=== PATIENT | female | born 1965 | race Caucasian/White ===

== ENCOUNTER 2021-09-08 09:27 | Emergency (ER) | payer BC ==
--- OUTSIDE RECORDS SUMMARY | 2021-09-08 09:30 | XMS REPORT | Continuity of Care Document ---
:1965 Author Organization [facility] t Address [address] [place] [address] Care Team Providers Name Role Phone Asar_F_WAGDNU Attending Clinician Unavailable Hart_R Attending Clinician Unavailable Asar_F_WAGDNU Admitting Clinician Unavailable Hart_R Admitting Clinician Unavailable Payers Payer Name Policy Type Policy Number Effective Date Expiration Date S wolf[place] [id number] 2020 00:00:00 Problems Condition Condition Condition Status Onset Resolution Last Treating Co mments Source Name Details Category Date Date Treatment Clinician Date Menopause Menopause Problem Active 2020-03 Galdino senia 1-08 Family 00:00: Practic 00 e Hypothyroi Hypothyroi Problem Active V illage dism dism 8-08 Family 00:00: Practic 00 e Allergies, Adverse Reactions, Alerts Allergy Allergy Status Severity Reaction(s) Onset Inactive Treating Comm ents Source Name Type Date Date Clinician Keflex Allergy Active Moderate Hives [facility] Practic e e Social History Smoking Status Start Date Stop Date Source Never Smoker [facility] Medications Ordered Filled Start Stop Current Ordering Indication Dosage Frequency Signature Comments Components Source Medication Medication Date Date Medication? Clinician (SIG) Name Name COMPOUNDED COMPOUNDED No COMPOUNDED [facility] MEDICATION MEDICATION MEDICATION Family Biest Biest Biest Practic (80/20)/ (80/20)/ (80/20)/ e Test 2.5/2 Test 2.5/2 Test 2.5/2 mg/ml HRT mg/ml HRT mg/ml HRT cream 0.5 cream 0.5 cream 0.5 ml ml ml topically topically topically to forearms to forearms to or inner or inner forearms thighs bid thighs bid or inner thighs bid COMPOUNDED COMPOUNDED No COMPOUNDED [facility] MEDICATION MEDICATION MEDICATION Family Biest Biest Biest Practic (80/20)/ (80/20)/ (80/20)/ e Test 2.5/2 Test 2.5/2 Test 2.5/2 mg/ml HRT mg/ml HRT mg/ml HRT cream 0.5 cream 0.5 cream 0.5 ml ml ml topically topically topically to forearms to forearms to or inner or inner forearms thighs bid thighs bid or inner thighs bid COMPOUNDED COMPOUNDED No COMPOUNDED [facility] MEDICATION MEDICATION MEDICATION Family Biest Biest Biest Practic (80/20)/ (80/20)/ (80/20)/ e Test 2.5/2 Test 2.5/2 Test 2.5/2 mg/ml HRT mg/ml HRT mg/ml HRT cream 0.5 cream 0.5 cream 0.5 ml ml ml topically topically topically to forearms to forearms to or inner or inner forearms thighs bid thighs bid or inner thighs bid escitalopra escitalopra No 1 Q1D escitalopr [facility] m 10 mg m 10 mg am 10 mg Famil y tablet Take tablet Take tablet Practic 1 tablet 1 tablet Take 1 e every day every day tablet by oral by oral every day route for route for by oral 30 days. 30 days. route for 30 days. gabapentin gabapentin gabapentin [facility] 100 mg 100 mg 100 mg [facility] capsule capsule capsule Practi c e hydrochloro hydrochloro hydrochlor [facility] thiazide 25 thiazide 25 othiazide Family mg tablet mg tablet 25 mg Prac tic Take 1 Take 1 tablet e tablet tablet Take 1 every day every day tablet by oral by oral every day route as route as by oral needed for needed for route as 90 days. 90 days. needed for 90 days. levothyroxi levothyroxi levothyrox [facility] 50 mcg ne 50 mcg ine 50 mcg Family tablet Take tablet Take tablet Practic 1 tablet 1 tablet Take 1 e every day every day tablet by oral by oral every day route. route. by oral route. naltrexone naltrexone No 1 Q1D naltrexone [facility] 50 mg 50 mg 50 mg Family tablet Take tablet Take tablet Practic 1 tablet 1 tablet Take 1 e every day every day tablet by oral by oral every day route for route for by oral 30 days. 30 days. route for 30 days. progesteron progesteron No progestero [facility] micronized micronized micronized Practic 200 mg 200 mg 200 mg e capsule capsule capsule Take 1 Take 1 Take 1 capsule capsule capsule every day every day every day by oral by oral by oral route at route at route at bedtime for bedtime for bedtime 90 days. 90 days. for 90 days. valacyclovi valacyclovi jeet [facility] r 500 mg r 500 mg ir 500 mg Fa susy tablet Take tablet Take tablet Practic 1 tablet 1 tablet Take 1 e every day every day tablet by oral by oral every day route for route for by oral 90 days. 90 days. route for 90 days. Vital Signs Vital Name Observation Time Observation Value Comments Source BP Diastolic 2021-01-25 00:00:00 76 mm[Hg] [facility] Height 2021-01-25 00:00:00 65 [in_i] [facility] BMI (Body Mass 2021-01-25 00:00:00 28.5 kg/m2 [facility] Family Index) Practice BP Systolic 2021-01-25 00:00:00 121 mm[Hg] [facility] Body Weight 2021-01-25 00:00:00 171.2 [lb_av] [facility] BP Diastolic 2020-12-08 00:00:00 90 mm[Hg] [facility] Height 2020-12-08 00:00:00 65 [in_i] [facility] BMI (Body Mass 2020-12-08 00:00:00 29.1 kg/m2 [facility] Family Index) Practice BP Systolic 2020-12-08 00:00:00 138 mm[Hg] [facility] Body Weight 2020-12-08 00:00:00 174.8 [lb_av] [facility] BP Diastolic 2020-10-21 00:00:00 71 mm[Hg] [facility] Height 2020-10-21 00:00:00 65 [in_i] [facility] BMI (Body Mass 2020-10-21 00:00:00 29.5 kg/m2 [facility] Family Index) Practice BP Systolic 2020-10-21 00:00:00 112 mm[Hg] [facility] Body Weight 2020-10-21 00:00:00 177 [lb_av] [facility] Procedures Procedure Date / Time Performed Performing Clinician Sourc e Foot Surgery 2009-03-20 00:00:00 [facility] Famil y [facility] Plan of Care Planned Activity Planned Date Details Comments Source Diagnostic Test 2021-01-25 estradiol, serum [facility] Pending 00:00:00 [code = estradiol, Practice serum] Diagnostic Test 2021-01-25 FSH [facility] James mcelroy Pending 00:00:00 (follicle-stimulat Practice ing hormone), serum [code = FSH (follicle-stimulat ing hormone), serum] Diagnostic Test 2021-01-25 testosterone, [facility] letty Pending 00:00:00 total, serum [code Practice = testosterone, total, serum] Diagnostic Test 2021-01-25 [facility]:00 plasma [code = Practice TSH, serum or plasma] Diagnostic Test 2021-01-25 T3, free, serum or [facility] Pending 00:00:00 plasma [code = T3, Practice free, serum or plasma] Diagnostic Test 2021-01-25 T4, total, serum [facility] Pending 00:00:00 [code = T4, total, Practice serum] Encounters Start End Encounter Admission Attending Care Care Encounter Source Date/Time Date/Time Type Type Clinicians Facility Department ID 2021-02-03 2021-02-03 Outpatient Asar_F_WAGD VFP VFP [id number] [facility] 09:17:00 09:17:00 NU [id number] Family Practic e 2021-01-25 2021-01-25 Outpatient Hart_R VFP VFP [id number] [facility] 12:17:00 12:17:00 [id number] Family Practic e 2021-01-25 2021-01-25 Makayla H [facility] [place] - [id number] [facility] 00:00:00 00:00:00 MD Remigio: [facility] [address] [facility] [address], League _ERNESTINA_[place], [place] kacie Morrison [phone] , Ph. 2020-12-17 2020-12-17 Outpatient Hart_R VFP VFP [id number] [facility] 12:22:00 12:22:00 [id number] Family Practic e 2020-12-17 2020-12-17 Outpatient Asar_F_WAG VFP VFP [id number] [facility] 12:22:00 12:22:00 [id number] Family Practic e 2020-12-17 2020-12-17 Outpatient Hart_R VFP VFP [id number] [facility] 12:22:00 12:22:00 [id number] Family Practic e 2020-12-14 2020-12-14 Outpatient Hart_R VFP VFP [id number] [facility] 01:30:00 01:30:00 [id number] Family Practic e 2020-12-08 2020-12-08 Outpatient Asar_F_WAG VFP VFP [id number] [facility] 05:54:00 05:54:00 [id number] Family Practic e 2020-12-08 2020-12-08 Outpatient Hart_R VFP VFP [id number] [facility] 05:54:00 05:54:00 [id number] Family Practic e 2020-12-08 2020-12-08 Makayla H [facility] [place] - [id number] [facility] 00:00:00 00:00:00 MD Remigio: [facility] ly [address] [place] [address] 3, [place] [phone] , Ph. 2020-10-28 2020-10-28 Outpatient Hart_R VFP VFP [id number] [facility] 11:29:00 11:29:00 [id number] Family Practic e 2020-10-28 2020-10-28 Outpatient Hart_R VFP VFP [id number] [facility] 11:25:00 11:25:00 [id number] Family Practic e 2020-10-24 2020-10-24 Outpatient Hart_R VFP VFP [id number] [facility] 09:37:00 09:37:00 [id number] Family Practic e 2020-10-24 2020-10-24 Outpatient Hart_R VFP VFP [id number] [facility] 09:37:00 09:37:00 [id number] Family Practic e 2020 2020 Outpatient Hart_R VFP VFP [id number] [facility] 11:45:00 11:45:00 [id number] Family Practic e 2020-10-21 2020-10-21 Outpatient Hart_R VFP VFP [id number] [facility] 05:23:00 05:23:00 [id number] Family Practic e 2020-10-21 2020-10-21 Makayla H [facility] [place] - [id number] [facility] 00:00:00 00:00:00 MD Remigio: [facility] [address] [facility] [address], [place] [facility] [place] [phone] , Ph. 2020-10-18 2020-10-18 Outpatient Hart_R VFP VFP [id number] [facility] 03:32:00 03:32:00 [id number] Family Practic e 2020-09-15 2020-09-15 Outpatient Asar_F_WAG VFP VFP [id number] [facility] 11:20:00 11:20:00 [id number] Family Practic e Results This patient has no known results.
[2021-09-08 10:07] LABS: Absolute Lymphocytes (CBC) 3.6 K/uL (0.7-4.9); Hematocrit 34.9 % (36.0-45.0); Lymphocytes % 38.1 % (15.3-44.8); MPV 7.4 fL (7.6-11.3); RBC Red Blood Cell Count 3.86 M/uL (3.86-4.86)
[2021-09-08 10:26] LABS: Potassium 3.5 mmol/L (3.5-5.1); Troponin High Sensitivity 4.4 pg/mL (<58.9)
[2021-09-08] MEDS ORDERED: ONDANSETRON 4 MG/2 ML VIAL ONE (10:38)
--- NOTE | 2021-09-08 10:57 | RAD REPORT ---
EXAM DESCRIPTION: CT - Angio Aorta For Dissection - 09/08/2021 10:42 am CLINICAL HISTORY: . Chest and abd pain aortic aneurysm COMPARISON: None TECHNIQUE: Computed tomography angiography of the chest, abdomen pelvis were obtained. 100 cc Isovue 370 was administered intravenously. Coronal and sagittal reconstruction were performed. MIP 3D reconstruction was performed All CT scans are performed using dose optimization technique as appropriate and may include automated exposure control or mA/KV adjustment according to patient size. FINDINGS: An aortic dissection is not seen. AP diameter ascending thoracic aorta 4 centimeters. The abdominal aorta is normal caliber. Iliac mario charlotte are normal. The celiac, SMA and KATYA are patent . A lung consolidation is not present. A pericardial effusion is not seen. A pleural effusion is not no chely. 5 centimeter lesion left lobe of the liver. Spleen, pancreas,adrenals and kidneys demonstrate no significant abnormality. There no evidence diverticulitis. Normal appendix IMPRESSION: Negative for an aortic dissection. Ascending aorta AP diameter 4 centimeters 5 centimeter lesion left lobe of the liver is nonspecific. It is recommended that patient have a live r ultrasound for further evaluation
[2021-09-08 10:59] LABS: Urine Blood 1+ (Negative); Urine Glucose Negative (Negative); Urine Protein Negative (Negative)
--- NOTE | 2021-09-08 11:43 | EDPHYS ---
Physician Documentation [facility] Name: Dyana Tanner Age: 55 yrs Sex: Female : 1965 Arrival Date: 09/08/2021 Time: 09:29 Bed 2 Private MD: ED Physician Chas Leiva HPI: 09/08 10:03 This 55 yrs old Female presents to ER via Ambulatory with complaints of Numbness Of rn Hand, Arm Pain. 10:03 The patient or guardian reports pain, tingling. The complaints affect the left hand rn diffusely, right hand diffusely. Context: The problem was sustained at an unknown location. Onset: The symptoms/episode began/occurred 2 month(s) ago. Modifying factors: The symptoms are alleviated by nothing, the symptoms are aggravated by nothing. Severity of symptoms: At their worst the symptoms were mild, in the emergency department the symptoms are unchanged. The patient has experienced similar episodes in the past. The patient has not recently seen a physician. Pt reports "months" of bilateral hand pain and tingling. Works a lot with hands. Yesterday felt nausea and threw up once, attributed it to acid reflux and "spitup". Denies chest pain or abd pain. No diarrhea. No fever. Reports also myalgias of back and arms. Hx of aortic aneurysm, tracked for about 7 years, told surgery not indicated. Went to [facility] urgent care, told couldn't be seen there due to hx of aortic aneurysm.. Historical: - Allergies: 09:35 Keflex; ss - PMHx: 09:35 "used to be diabetic"; aortic aneurysm; ss - PSHx: 09:35 foot; finger; ss - Immunization history:: Adult Immunizations up to date. - Social history:: Smoking status: Patient denies any tobacco usage or history of. Patient uses street drugs, marijuana. - Family history:: not pertinent. - Hospitalizations: : No recent hospitalization is reported. ROS: 10:03 Constitutional: Negative for fever, chills, and weight loss, Eyes: Negative for injury, rn pain, redness, and discharge, ENT: Negative for injury, pain, and discharge, Neck: Negative for injury, pain, and swelling, Cardiovascular: Negative for chest pain, palpitations, and edema, Respiratory: Negative for shortness of breath, cough, wheezing, and pleuritic chest pain, Abdomen/GI: Negative for abdominal pain, nausea, vomiting, diarrhea, and constipation, Back: Negative for injury and pain, MS/Extremity: Negative for injury and deformity, Skin: Negative for injury, rash, and discoloration, Neuro: Negative for headache, weakness, and seizure. Exam: 10:03 Constitutional: This is a well developed, well nourished patient who is awake, alert, rn and in no acute distress. Ambulatory to room without difficulty or assistance. Head/Face: Normocephalic, atraumatic. Eyes: Periorbital areas with no swelling, redness, or edema. Neck: Trachea midline, no thyromegaly or masses palpated, and no cervical lymphadenopathy. Supple, full range of motion without nuchal rigidity, or vertebral point tenderness. No Meningismus. Cardiovascular: Regular rate and rhythm. No pulse deficits. Respiratory: No increased work of breathing, no retractions or nasal flaring. Abdomen/GI: Soft, non-tender Skin: Warm, dry MS/ Extremity: Pulses equal, no cyanosis. Neurovascular intact. Full, normal range of motion. Equal circumference. Neuro: Awake and alert, GCS 15, oriented to person, place, time, and situation. Cranial nerves II-XII grossly intact. Motor strength 5/5 in all extremities. Sensory grossly intact. Cerebellar exam normal. Normal gait. Vital Signs: 09:33 BP 126 / 84; Pulse 67; Resp 17; Temp 98.4(TE); Pulse Ox 100% on R/A; Weight 80.74 kg; ss Height 5 ft. 7 in. (170.18 cm); Pain 4/10; 11:00 BP 97 / 59; Pulse 50; Resp 14; Pulse Ox 95% on R/A; vg1 12:13 BP 94 / 57; Pulse 50; Resp 16; Pulse Ox 95% on R/A; vg1 09:33 Body Mass Index 27.88 (80.74 kg, 170.18 cm) ss MDM: 09:31 Patient medically screened. rn 11:41 Differential diagnosis: neuropathy, carpal tunnel, radiculopathy. Data reviewed: vital rn signs, nurses notes, lab test result(s), EKG, radiologic studies, CT scan, and as a result, I will discharge patient. Counseling: I had a detailed discussion with the patient and/or guardian regarding: the historical points, exam findings, and any diagnostic results supporting the discharge/admit diagnosis, lab results, radiology results, the need for outpatient follow up, to return to the emergency department if symptoms worsen or persist or if there are any questions or concerns that arise at home. Special discussion: I discussed with the patient/guardian in detail that at this point there is no indication for admission to the hospital. It is understood, however, that if the symptoms persist or worsen the patient needs to return immediately for re-evaluation. 09/08 09:51 Order name: CBC with Diff; Complete Time: 10:32 rn 09/08 09:51 Order name: Basic Metabolic Panel; Complete Time: 10:32 rn 09/08 09:51 Order name: SARS-COV-2 RT PCR (Document "Date of Onset" if Symptomatic); Complete Time: rn 11:41 09/08 09:51 Order name: Flu; Complete Time: 11:41 rn 09/08 09:51 Order name: Troponin High Sensitivity; Complete Time: 10:32 rn 09/08 10:59 Order name: Urine Dipstick-Ancillary; Complete Time: 11:06 EDMS 09/08 09:51 Order name: IV Start; Complete Time: 10:15 rn 09/08 09:51 Order name: Urine Dipstick-Ancillary (obtain specimen); Complete Time: 11:12 rn 09/08 09:51 Order name: EKG; Complete Time: 09:52 rn 09/08 09:51 Order name: EKG - Nurse/Tech; Complete Time: 10:14 rn 09/08 09:54 Order name: CT Aorta for Dissection; Complete Time: 11:06 rn 09/08 09:54 Order name: Cardiac monitoring; Complete Time: 10:14 rn 09/08 09:54 Order name: O2 Sat Monitoring; Complete Time: 10:14 rn Administered Medications: 10:35 Drug: Zofran (Ondansetron) 4 mg Route: IVP; Site: right forearm; vg1 12:13 Follow up: Response: No adverse reaction; Marked relief of symptoms vg1 Disposition Summary: 09/08/21 11:42 Discharge Ordered Location: Home rn Problem: an ongoing problem rn Symptoms: have improved rn Condition: Stable rn Diagnosis - Paresthesia of skin rn - Polyneuropathy, unspecified rn Followup: rn - With: Private Physician - When: As needed - Reason: Recheck today's complaints, Re-evaluation by your physician Discharge Instructions: - Discharge Summary Sheet rn - Paresthesia rn - Peripheral Neuropathy rn Forms: - Medication Reconciliation Form rn - Thank You Letter rn - Antibiotic learning and development manager - Prescription Opioid Use rn - Work release form vg1 Signatures: Dispatcher [employer] Santa Tolbert RN RN Chas Cooper MD MD rn Smirch, Shelby, RN RN ss Garcia, Victoria, RN RN vg1
--- NOTE | 2021-09-08 11:43 | ER ---
Nurse's Notes [facility] Name: Dyana Tanner Age: 55 yrs Sex: Female : 1965 Arrival Date: 09/08/2021 Time: 09:29 Bed 2 Private MD: Diagnosis: Paresthesia of skin;Polyneuropathy, unspecified Presentation: 09/08 09:33 Chief complaint: Patient states: Intermittent pain and numbness to bilateral fingers ss that began months ago. PT reports that this morning her L arm started hurting she had some episodes of nausea. HX of aortic aneurysm that she has not been following up with as she should. Coronavirus screen: Client denies travel out of the [place] in the last 14 days. Ebola Screen: Patient denies exposure to infectious person. Patient denies travel to an Ebola-affected area in the 21 days before illness onset. Initial Sepsis Screen: Does the patient meet any 2 criteria? No. Patient's initial sepsis screen is negative. Does the patient have a suspected source of infection? No. Patient's initial sepsis screen is negative. Risk Assessment: Do you want to hurt yourself or someone else? Patient reports no desire to harm self or others. Onset of symptoms is unknown. 09:33 Method Of Arrival: Ambulatory ss 09:33 Acuity: CHEPE 3 ss Historical: - Allergies: 09:35 Keflex; ss - PMHx: 09:35 "used to be diabetic"; aortic aneurysm; ss - PSHx: 09:35 foot; finger; ss - Immunization history:: Adult Immunizations up to date. - Social history:: Smoking status: Patient denies any tobacco usage or history of. Patient uses street drugs, marijuana. - Family history:: not pertinent. - Hospitalizations: : No recent hospitalization is reported. Screenin:35 Abuse screen: Denies threats or abuse. Nutritional screening: No deficits noted. vg1 Tuberculosis screening: No symptoms or risk factors identified. Fall Risk No fall in past 12 months (0 pts). No secondary diagnosis (0 pts). IV access (20 points). Ambulatory Aid- None/Bed Rest/Nurse Assist (0 pts). Gait- Normal/Bed Rest/Wheelchair (0 pts) Mental Status- Oriented to own ability (0 pts). Total Greer Fall Scale indicates No Risk (0-24 pts). Assessment: 09:35 General: Appears in no apparent distress. uncomfortable, Behavior is calm, cooperative. vg1 Pain: Complains of pain in left arm Pain currently is 5 out of 10 on a pain scale. Pain began 1 day ago. Neuro: Level of Consciousness is awake, alert, obeys commands, Oriented to person, place, time, situation, Training Manager are equal bilaterally Moves all extremities. Gait is steady, Speech is normal, Facial symmetry appears normal. Cardiovascular: Denies chest pain, shortness of breath, Patient's skin is warm and dry. Respiratory: Airway is patent Respiratory effort is even, unlabored. GI: Reports nausea. : No signs and/or symptoms were reported regarding the genitourinary system. EENT: No signs and/or symptoms were reported regarding the EENT system. Derm: Skin is intact, is healthy with good turgor. Musculoskeletal: Circulation, motion, and sensation intact. 11:13 Reassessment: Patient appears in no apparent distress at this time. No changes from vg1 previously documented assessment. Patient and/or family updated on plan of care and expected duration. Pain level reassessed. Patient is alert, oriented x 3, equal unlabored respirations, skin warm/dry/pink. 12:12 Reassessment: Patient appears in no apparent distress at this time. No changes from vg1 previously documented assessment. Patient and/or family updated on plan of care and expected duration. Pain level reassessed. Patient is alert, oriented x 3, equal unlabored respirations, skin warm/dry/pink. Vital Signs: 09:33 BP 126 / 84; Pulse 67; Resp 17; Temp 98.4(TE); Pulse Ox 100% on R/A; Weight 80.74 kg; Height 5 ft. 7 in. (170.18 cm); Pain 4/10; 11:00 BP 97 / 59; Pulse 50; Resp 14; Pulse Ox 95% on R/A; vg1 12:13 BP 94 / 57; Pulse 50; Resp 16; Pulse Ox 95% on R/A; vg1 09:33 Body Mass Index 27.88 (80.74 kg, 170.18 cm) ED Course: 09:29 Patient arrived in ED. mr 09:31 Chas Leiva MD is Attending Physician. rn 09:35 Triage completed. ss 09:35 Arm band placed on right wrist. ss 09:35 Patient has correct armband on for positive identification. Placed in gown. Bed in low vg1 position. Call light in reach. Side rails up X 1. 09:36 Leticia Hodgson, RN is Primary Nurse. vg1 09:50 Initial lab(s) drawn, by me, sent to lab. Inserted saline lock: 20 gauge in left vg1 forearm, using aseptic technique. Blood collected. 09:55 COVID swab sent to lab. Flu and/or RSV swab sent to lab. vg1 10:[address] via stretcher. vg1 10:44 CT Aorta for Dissection In Process Unspecified. EDMS 12:13 No provider procedures requiring assistance completed. IV discontinued, intact, vg1 bleeding controlled, No redness/swelling at site. Pressure dressing applied. Administered Medications: 10:35 Drug: Zofran (Ondansetron) 4 mg Route: IVP; Site: right forearm; vg1 12:13 Follow up: Response: No adverse reaction; Marked relief of symptoms vg1 Medication: 10:17 VIS not applicable for this client. vg1 Outcome: 11:42 Discharge ordered by . rn 12:12 Discharged to home ambulatory. vg1 12:12 Condition: good 12:12 Discharge instructions given to patient, Instructed on discharge instructions, follow up and referral plans. Demonstrated understanding of instructions, follow-up care. 12:13 Patient left the ED. vg1 Signatures: Dispatcher [employer] EDIL Shellie Gutierrez Roman, MD MD rn Smirch, Shelby, RN RN Leticia Hodgson RN RN vg1
[2021-09-08 12:20] VITALS: TEMP 98.4
[2021-09-08 12:22] VITALS: O2SAT 95
[2021-09-08 12:24] VITALS: BP 94/57
--- NOTE | 2021-09-11 17:38 | EKG ---
Test Date: 2021-09-08 Test Time: 10:07:22 Territory Sales Manager: DEMETRIUS MEASUREMENT RESULTS: Intervals: Rate: 48 CO: 218 QRSD: 100 QT: 466 QTc: 416 [place]: P: 47 CO: 218 QRS: -11 T: 34 INTERPRETIVE STATEMENTS: Sinus bradycardia with 1st degree AV block Voltage criteria for left ventricular hypertrophy Abnormal ECG No previous ECG available for comparison Electronically Signed On 09-11-21 17:32:19 CDT by Henry Mccord
== END 2021-09-08 12:13 | disposition home or self-care (01) ==
LOC: ER 09:27
DX: G62.9 Polyneuropathy, unspecified (principal); Z88.8 Allergy status to other drugs, medicaments and biological substances; Z20.822 Contact with and (suspected) exposure to COVID-19
CPT/HCPCS: 93005; 85025; 80048; 36415; 81003; 84484; 87804 ×2; 71275; 74175; 96374; 99284; U0003; Q9967; J2405

== ENCOUNTER 2022-04-20 18:38 | Emergency (ER) | payer BC ==
--- OUTSIDE RECORDS SUMMARY | 2022-04-20 18:45 | XMS REPORT | Continuity of Care Document ---
:1965 Author Organization [facility] t Address [address] [place]. [id number] Care Team Providers Name Role Phone Asar_F_WAGDNU Attending Clinician Unavailable Hart_R Attending Clinician Unavailable Asar_F_WAGDNU Admitting Clinician Unavailable Hart_R Admitting Clinician Unavailable Payers Payer Name Policy Type Policy Number Effective Date Expiration Date S [place] [id number] 2020 00:00:00 Problems Condition Condition Condition Status Onset Resolution Last Treating Co mments Source Name Details Category Date Date Treatment Clinician Date Hypertrigl Hypertrigl Problem Active 2021-03 [facility] yceridemia yceridemia 0-26 Fa susy 00:00: Practic 00 e Body mass Body Mass Problem Active 2021-03 Galdino conn index 30+ Index 30+ 0-26 Fami ly - obesity - Obesity 00:00: Prac tic 00 e Obesity Obesity Problem Active 2021-03 [place] 0-26 Family 00:00: Practic 00 e Mixed Mixed Problem Active 2021-03 [facility] anxiety Anxiety 0-26 Family and and 00:00: Practic depressive Depressive 00 e disorder Disorder Impaired Impaired Problem Active 2021-03 [facility] fasting Fasting 0-26 Family glycemia Glycemia 00:00: Practi c 00 e Herpes Herpes Problem Active [place] simplex Simplex 7-07 Family 00:00: Practic 00 e Menopause Menopause Problem Active 2020-03 Galdino senia [...] Date Date Medication? Clinician (SIG) Name Name albuterol albuterol No albuterol [facility] sulfate HFA sulfate HFA sulfate Family 90 90 HFA 90 Practic mcg/actuati mcg/actuati mcg/actuat e on aerosol on aerosol ion inhaler inhaler aerosol inhaler gabapentin gabapentin gabapentin [facility] 100 mg 100 mg 100 mg Family capsule capsule capsule Practi c e hydrochloro hydrochloro No hydrochlor [facility] thiazide 25 thiazide 25 othiazide Family mg tablet mg tablet 25 mg Prac tic TAKE 1 TAKE 1 tablet e TABLET BY TABLET BY TAKE 1 MOUTH EVERY MOUTH EVERY TABLET BY DAY DAY MOUTH NEEDED NEEDED EVERY DAY NEEDED levothyroxi levothyroxi levothyrox [facility] ne 50 mcg ne 50 mcg ine 50 mcg Family tablet TAKE tablet TAKE tablet Practic 1 TABLET BY 1 TABLET BY TAKE 1 e MOUTH EVERY MOUTH EVERY TABLET BY DAY DAY MOUTH EVERY DAY meloxicam meloxicam No 1 Q1D meloxicam [facility] 15 mg 15 mg 15 mg Family tablet Take tablet Take tablet Practic 1 tablet 1 tablet Take 1 e every day every day tablet by oral by oral every day route as route as by oral needed for needed for route as 30 days. 30 days. needed for 30 days. methocarbam methocarbam No 1 Q1D methocarba [facility] ol 500 mg ol 500 mg mol 500 mg Family tablet Take tablet Take tablet Practic 1 tablet 1 tablet Take 1 e every day every day tablet by oral by oral every day route at route at by oral bedtime. bedtime. route at bedtime. naproxen naproxen No naproxen Galdino senia 500 mg 500 mg 500 mg Family tablet tablet tablet Practic e ondansetron ondansetron No ondansetro [facility] 4 mg 4 mg n 4 mg Family disintegrat disintegrat disintegra Practic ing tablet ing tablet ting e tablet progesteron progesteron No progestero [facility] e e ne Family micronized micronized micronized Practic 200 mg 200 mg 200 mg e capsule capsule capsule TAKE 1 TAKE 1 TAKE 1 CAPSULE BY CAPSULE BY CAPSULE BY MOUTH AT MOUTH AT MOUTH AT BEDTIME BEDTIME BEDTIME trazodone trazodone trazodone [facility] 50 mg 50 mg 50 mg Family tablet tablet tablet Practic e Trintellix Trintellix No Trintellix [facility] 20 mg 20 mg 20 mg Family tablet tablet tablet Practic e valacyclovi valacyclovi No valacyclov [facility] r 500 mg r 500 mg ir 500 mg Fa susy tablet TAKE tablet TAKE tablet Practic 1 TABLET BY 1 TABLET BY TAKE 1 e MOUTH EVERY MOUTH EVERY TABLET BY DAY DAY MOUTH EVERY DAY COMPOUNDED COMPOUNDED No [facility] MEDICATION MEDICATION MEDICATION Family Biest Biest Biest Practic (80/20)/ (80/20)/ (80/20)/ e Test 2.5/2 Test 2.5/2 Test 2.5/2 mg/ml HRT mg/ml HRT mg/ml HRT cream 0.5 cream 0.5 cream 0.5 ml ml ml topically topically topically to forearms to forearms to or inner or inner forearms thighs bid thighs bid or inner thighs bid COMPOUNDED [facility]ED [facility] MEDICATION MEDICATION MEDICATION Family Biest Biest Biest Practic (80/20)/ (80/20)/ (80/20)/ e Test 2.5/2 Test 2.5/2 Test 2.5/2 mg/ml HRT mg/ml HRT mg/ml HRT cream 0.5 cream 0.5 cream 0.5 ml ml ml topically topically topically to forearms to forearms to or inner or inner forearms thighs bid thighs bid or inner thighs bid COMPOUNDED COMPOUNDED No [facility] MEDICATION MEDICATION MEDICATION Family Biest Biest Biest Practic (80/20)/ (80/20)/ (80/20)/ e Test 2.5/2 Test 2.5/2 Test 2.5/2 mg/ml HRT mg/ml HRT mg/ml HRT cream 0.5 cream 0.5 cream 0.5 ml ml ml topically topically topically to forearms to forearms to or inner or inner forearms thighs bid thighs bid or inner thighs bid escitalopra escitalopra No 1 Q1D escitalopr [facility] m 10 mg m 10 mg am 10 mg Famil y tablet Take tablet Take tablet Practic 1 tablet 1 tablet Take 1 e every day every day tablet by oral by oral every day route for route for by oral 30 days. 30 days. route for 30 days. gabapentin gabapentin gabapentin [facility] 100 mg 100 mg 100 mg Family capsule capsule capsule Practi c e hydrochloro hydrochloro No hydrochlor [facility] thiazide 25 thiazide 25 othiazide Family mg tablet mg tablet 25 mg Prac tic Take 1 Take 1 tablet e tablet tablet Take 1 every day every day tablet by oral by oral every day route as route as by oral needed for needed for route as 90 days. 90 days. needed for 90 days. levothyroxi levothyroxi No levothyrox [facility] ne 50 mcg ne 50 mcg ine 50 mcg Family tablet Take tablet Take tablet Practic 1 tablet 1 tablet Take 1 e every day every day tablet by oral by oral every day route. route. by oral route. naltrexone naltrexone No 1 Q1D naltrexone [facility] 50 mg 50 mg 50 mg Family tablet Take tablet Take tablet Practic 1 tablet 1 tablet Take 1 e every day every day tablet by oral by oral every day route for route for by oral 30 days. 30 days. route for 30 days. progesteron progesteron No progestero [facility] e e ne Family micronized micronized micronized Practic 200 mg 200 mg 200 mg e capsule capsule capsule Take 1 Take 1 Take 1 capsule capsule capsule every day every day every day by oral by oral by oral route at route at route at bedtime for bedtime for bedtime 90 days. 90 days. for 90 days. valacyclovi valacyclovi valacyclov [facility] r 500 mg r 500 mg ir 500 mg Fa [facility] tablet Take tablet Take tablet Practic 1 tablet 1 tablet Take 1 e every day every day tablet by oral by oral every day route for route for by oral 90 days. 90 days. route for 90 days. Vital Signs Vital Name Observation Time Observation Value Comments Source Body Weight 2022-01-12 00:00:00 193.8 [lb_av] [facility] BP Diastolic 2022-01-12 00:00:00 52 mm[Hg] [facility] Height 2022-01-12 00:00:00 65 [in_i] [facility] BMI (Body Mass 2022-01-12 00:00:00 32.2 kg/m2 [facility] BP Systolic 2022-01-12 00:00:00 128 mm[Hg] [facility] BP Diastolic 2021-01-25 00:00:00 76 mm[Hg] [facility] Height 2021-01-25 00:00:00 65 [in_i] [facility] BMI (Body Mass 2021-01-25 00:00:00 28.5 kg/m2 [facility] Family Index) Practice BP Systolic 2021-01-25 00:00:00 121 mm[Hg] [facility] Body Weight 2021-01-25 00:00:00 171.2 [lb_av] [facility] BP Diastolic 2020-12-08 00:00:00 90 mm[Hg] [facility] Height 2020-12-08 00:00:00 65 [in_i] [facility] BMI (Body Mass 2020-12-08 00:00:00 29.1 kg/m2 [facility] Family Index) Practice BP Systolic 2020-12-08 00:00:00 138 mm[Hg] [facility] Body Weight 2020-12-08 00:00:00 174.8 [lb_av] [facility] BP Diastolic 2020-10-21 00:00:00 71 mm[Hg] [facility] Height 2020-10-21 00:00:00 65 [in_i] [facility] BMI (Body Mass 2020-10-21 00:00:00 29.5 kg/m2 [facility] Family Index) Practice BP Systolic 2020-10-21 00:00:00 112 mm[Hg] [facility] Body Weight 2020-10-21 00:00:00 177 [lb_av] [facility] Procedures Procedure Date / Time Performed Performing Clinician Sour e [facility]03[facility] 2007-09-22 00:00:00 [facility] ly Practice Total Hysterectomy [facility] Famil y Practice Plan of Care Planned Activity Planned Date Details Comments Source Diagnostic Test 2022-01-12 HbA1c (hemoglobin [facility] Pending 00:00:00 A1c), blood [code Practice = HbA1c (hemoglobin A1c), blood] Diagnostic Test 2022-01-12 lipid panel, serum [facility] Pending 00:00:00 [code = lipid Practice panel, serum] Diagnostic Test 2022-01-12 TSH, serum or [facility] Pending 00:00:00 plasma [code = Practice TSH, serum or plasma] Diagnostic Test 2022-01-12 T4, free, serum [facility] Pending 00:00:00 [code = T4, free, Practice serum] Diagnostic Test 2022-01-12 T3, free, serum or [facility] Pending 00:00:00 plasma [code = T3, Practice free, serum or plasma] Diagnostic Test 2022-01-12 CBC w/ auto diff [facility] Pending 00:00:00 [code = CBC w/ Practice auto diff] Diagnostic Test 2022-01-12 CMP, serum or [facility] Pending 00:00:00 plasma [code = Practice CMP, serum or plasma] Diagnostic Test 2022-01-12 vitamin B12 + [facility] Pending 00:00:00 folate, serum or Practice blood [code = vitamin B12 + folate, serum or blood] Encounters Start End Encounter Admission Attending Care Care Encounter Source Date/Time Date/Time Type Type Clinicians Facility Department ID 2022-01-12 2022-01-12 Outpatient Asar_F_WAGD VFP VFP [facility] 00:00:00 00:00:00 NU [id number] Family Practic e 2022-01-12 2022-01-12 Norm VFP [place] - [id number] [facility] 00:00:00 00:00:00 [facility] Pract petra MD: [address] [place] [address] , Ph. 2021-12-30 2021-12-30 Outpatient Asar_F_WAGD VFP VFP [id number] [facility] 00:00:00 00:00:00 NU [id number] Family Practic e 2021-09-29 2021-09-29 Outpatient Hart_R VFP VFP [id number] [facility] 06:07:00 06:07:00 [id number] Family Practic e 2021-02-03 2021-02-03 Outpatient Asar_F_WAGD VFP VFP [id number] [facility] 09:17:00 09:17:00 NU [id number] Family Practic e 2021-01-25 2021-01-25 Makayla H Hart_R VFP [place] - [id number] [facility] 00:00:00 00:00:00 MD Remigio: [facility] [id number] [facility] [address] [facility] [address] [place], [place] [phone] , Ph. 2020-12-17 2020-12-17 Outpatient Hart_R VFP VFP [id number] [facility] 12:22:00 12:22:00 [id number] Family Practic e 2020-12-14 2020-12-14 Outpatient Hart_R VFP VFP [id number] [facility] 01:30:00 01:30:00 [id number] Family Practic e 2020-12-08 2020-12-08 Makayla H Asar_F_WAG VFP [place] - [id number] [facility] 00:00:00 00:00:00 MD Remigio: [facility] [id number] [facility] [address] [facility] [address], [facility] [place] [phone] , Ph. 2020-10-28 2020-10-28 Outpatient Hart_R VFP VFP [id number] [facility] 11:29:00 11:29:00 [id number] Family Practic e 2020-10-24 2020-10-24 Outpatient Hart_R VFP VFP [id number] [facility] 09:37:00 09:37:00 [id number] Family Practic e 2020 2020 Outpatient Hart_R VFP VFP [id number] [facility] 11:45:00 11:45:00 [id number] Family Practic e 2020-10-21 2020-10-21 Makayla H Hart_R VFP [place] - [id number]- [id number] [facility] 00:00:00 00:00:00 MD Remigio: [facility] [id number] [facility] ly [address] [facility] [address], [facility] [place] [place] [phone] , Ph. 2020-10-18 2020-10-18 Outpatient Hart_R VFP VFP [id number] [facility] 03:32:00 03:32:00 [id number] Family Practic e 2020-09-15 2020-09-15 Outpatient Asar_F_WAG VFP VFP [id number] [facility] 11:20:00 11:20:00 [id number] Family Practic e Results This patient has no known results.
[2022-04-20] MEDS ORDERED: NA CHLORIDE 0.9% 1,000 ML ONE (20:22)
[2022-04-20 20:51] LABS: Absolute Lymphocytes (CBC) 4.9 K/uL (0.7-4.9); Hematocrit 35.1 % (36.0-45.0); Lymphocytes % 44.6 % (15.3-44.8); MCV 91.3 fL (80-100); MPV 7.4 fL (7.6-11.3); RBC Red Blood Cell Count 3.85 M/uL (3.86-4.86)
[2022-04-20 20:56] LABS: Albumin 3.7 g/dL (3.4-5.0); Bilirubin Total 0.2 mg/dL (0.2-1.0); Potassium 3.9 mmol/L (3.5-5.1); Protein, Total 7.4 g/dL (6.4-8.2); Troponin High Sensitivity 4.5 pg/mL (<58.9)
[2022-04-20] MEDS ORDERED: MORPHINE 4 MG/ML SYR ONE (20:59)
[2022-04-20] MEDS ORDERED: ONDANSETRON 4 MG/2 ML VIAL ONE (20:59)
[2022-04-20 21:41] LABS: Urine Blood 1+ (Negative); Urine Glucose Negative (Negative); Urine Protein Negative (Negative); Urine pH 6.5 (5.0-7.0)
--- NOTE | 2022-04-20 21:59 | RAD REPORT ---
EXAM DESCRIPTION: CT - Angio Aorta For Dissection - 04/20/2022 9:33 pm CLINICAL HISTORY: . Chest and abd pain COMPARISON: August 2021 TECHNIQUE: Computed tomography angiography of the chest, abdomen pelvis were obtained. 100 cc Isovue 370 was administered intravenously. Coronal and sagittal reconstruction were performed. MIP 3D reconstruction was performed All CT scans are performed using dose optimization technique as appropriate and may include automated exposure control or mA/KV adjustment according to patient size. FINDINGS: An aortic dissection is not seen. AP diameter ascending thoracic aorta 4.2 centimeters. It is without significant change from prior exa m The celiac, SMA and KATYA are patent . A lung consolidation is not present. A pericardial effusion is not seen. A pleural effusion is not no chely. Hepatic lesions. Largest in the left lobe measures approximately 5 centimeters Spleen, pancreas,adrenals and kidneys demonstrate no significant abnormality. There no evidence diverticulitis. Normal appendix IMPRESSION: Negative for an aortic dissection. Ascending thoracic aorta 4.2 centimeters without significant change Hepatic lesions. Nonemergent MRI recommendedfor further evaluation
--- NOTE | 2022-04-20 22:14 | ER ---
Nurse's Notes [facility] Name: Dyana Tanner Age: 56 yrs Sex: Female : 1965 Arrival Date: 04/20/2022 Time: 18:41 Bed 9 Private MD: Diagnosis: Right Flank Pain;Other microscopic hematuria Presentation: 04/20 18:55 Chief complaint: Patient states: Still has R flank pain, hematuria, nausea since Monday ll1 night. Was sent at [facility], sent here for further eval. Also wanted her aortic aneurysm checked out since its been awhile. Coronavirus screen: Vaccine status: Patient reports receiving the 2nd dose of the covid vaccine. Client denies travel out of the [place] in the last 14 days. cough unrelated to allergies, fatigue, fever, headache, muscle pain, nausea, sore throat, Client presents with at least one sign or symptom that may indicate coronavirus-19. Standard/surgical mask placed on the client. Ebola Screen: Patient denies travel to an Ebola-affected area in the 21 days before illness onset. Initial Sepsis Screen: Does the patient meet any 2 criteria? No. Patient's initial sepsis screen is negative. Does the patient have a suspected source of infection? Yes: Dysuria/Frequency/Urgency/UTI. Risk Assessment: Do you want to hurt yourself or someone else? Patient reports no desire to harm self or others. Onset of symptoms was April 16, 2022. 18:55 Method Of Arrival: Ambulatory ll1 18:55 Acuity: CHEPE 3 ll1 Historical: - Allergies: 18:58 Keflex; ll1 - PMHx: 18:58 "used to be diabetic"; aortic aneurysm; ll1 - PSHx: 18:58 finger; foot; hysterectomy; ll1 - Immunization history:: Client reports receiving the 2nd dose of the Covid vaccine. - Social history:: Smoking status: Patient denies any tobacco usage or history of. - Family history:: not pertinent. Screenin:28 [facility] ED Fall Risk Assessment (Adult) History of falling in the last 3 months, ll3 including since admission No falls in past 3 months (0 pts) Confusion or Disorientation No (0 pts) Intoxicated or Sedated No (0 pts) Impaired Gait No (0 pts) Mobility Assist Device Used No (0 pt) Altered Elimination No (0 pt) Score/Fall Risk Level 0 - 2 = Low Risk Oriented to surroundings, Maintained a safe environment, Educated pt \\T\\ family on fall prevention, incl call for assistance when getting out of bed. Abuse screen: Denies threats or abuse. Denies injuries from another. Nutritional screening: No deficits noted. Tuberculosis screening: No symptoms or risk factors identified. Assessment: 20:38 General: Appears uncomfortable, Behavior is calm, cooperative. Pain: Complains of pain ll3 in anterior aspect of right lateral abdomen Pain does not radiate. Pain currently is 9 out of 10 on a pain scale. Quality of pain is described as sharp, Pain began 2-3 days ago. Is continuous. Neuro: Level of Consciousness is awake, alert, obeys commands, Oriented to person, place, time, situation. GI: Abdomen is round non-distended, Reports nausea. Derm: Skin is normal. 21:57 Reassessment: Patient and/or family updated on plan of care and expected duration. Pain ll3 level reassessed. Patient is alert, oriented x 3, equal unlabored respirations, skin warm/dry/pink. States pain and nausea has improved, states pain is 6/10 Patient states symptoms have improved. Vital Signs: 18:55 BP 121 / 72; Pulse 71; Resp 17; Temp 97.8; Pulse Ox 100% ; Weight 86.18 kg; Height 5 ll1 ft. 7 in. (170.18 cm); Pain 9/10; 20:48 BP 118 / 78; Pulse 67; Resp 14; Pulse Ox 98% ; Pain 9/10; ll3 21:57 BP 125 / 68; Pulse 56; Resp 20; Pulse Ox 98% on R/A; Pain 6/10; ll3 18:55 Body Mass Index 29.76 (86.18 kg, 170.18 cm) ll1 ED Course: 18:41 Patient arrived in ED. rg4 18:58 Triage completed. ll1 18:59 Arm band placed on. ll1 19:50 Andrade Owens MD is Attending Physician. rt 20:28 Initial lab(s) drawn, by me, sent to lab. Inserted saline lock: 20 gauge in right ll3 antecubital area, using aseptic technique. Blood collected. 21:34 CT Aorta for Dissection In Process Unspecified. EDMS 22:12 Kana Rolon MD is Referral Physician. rt 22:28 Patient has correct armband on for positive identification. Placed in gown. Bed in low ll3 position. Call light in reach. Side rails up X 1. 22:28 No provider procedures requiring assistance completed. IV discontinued, intact, ll3 bleeding controlled, No redness/swelling at site. Pressure dressing applied. Administered Medications: 20:28 Drug: NS 0.9% 1000 ml Route: IV; Rate: 1 bolus; Site: right antecubital; ll3 22:29 Follow up: Response: No adverse reaction; IV Status: Completed infusion; IV Intake: ll3 1000ml 21:04 Drug: morphine 4 mg Route: IVP; Infused Over: 4 mins; Site: right antecubital; ll3 21:57 Follow up: Response: No adverse reaction; Pain is decreased ll3 21:04 Drug: Zofran (Ondansetron) 4 mg Route: IVP; Site: right antecubital; ll3 21:57 Follow up: Response: No adverse reaction; Marked relief of symptoms ll3 Medication: 22:29 VIS not applicable for this client. ll3 Intake: 22:29 IV: 1000ml; Total: 1000ml. ll3 Outcome: 22:14 Discharge ordered by . rt 22:28 Discharged to home ambulatory, with significant other. ll3 22:28 Condition: stable 22:28 Discharge instructions given to patient, significant other, Instructed on discharge instructions, follow up and referral plans. medication usage, Demonstrated understanding of instructions, follow-up care, medications, Prescriptions given X 1. 22:30 Patient left the ED. ll3 Signatures: Dispatcher [employer] Sofia Irizarry rg4 Daniel Jung RN RN ll1 Ellen Chambers RN RN ll3 Andrade Owens MD MD rt
--- NOTE | 2022-04-20 22:15 | EDPHYS ---
Physician Documentation [facility] Name: Dyana Tanner Age: 56 yrs Sex: Female : 1965 Arrival Date: 04/20/2022 Time: 18:41 Bed 9 Private MD: ED Physician Andrade Owens HPI: 04/20 23:12 This 56 yrs old Female presents to ER via Ambulatory with complaints of Nausea, Flank rt Pain. 23:12 Patient presents to the ED with nausea, vomiting, right flank pain and hematuria since rt Monday. Patient was seen in outside ED, was told to come here for further evaluation. Patient states that she has an abdominal aortic aneurysm that is being watched at about 4.7 cm. She denies other acute complaints at this time. Pain is aching in nature, radiates to the abdomen, no other aggravating elevating factors.. Historical: - Allergies: 18:58 Keflex; ll1 - PMHx: 18:58 "used to be diabetic"; aortic aneurysm; ll1 - PSHx: 18:58 finger; foot; hysterectomy; ll1 - Immunization history:: Client reports receiving the 2nd dose of the Covid vaccine. - Social history:: Smoking status: Patient denies any tobacco usage or history of. - Family history:: not pertinent. ROS: 23:12 Constitutional: Negative for fever, chills, and weight loss, Eyes: Negative for injury, rt pain, redness, and discharge, Cardiovascular: Negative for chest pain, palpitations, and edema, Respiratory: Negative for shortness of breath, cough, wheezing, and pleuritic chest pain, MS/Extremity: Negative for injury and deformity, Skin: Negative for injury, rash, and discoloration, Neuro: Negative for headache, weakness, numbness, tingling, and seizure, Psych: Negative for depression, anxiety, suicide ideation, homicidal ideation, and hallucinations. 23:12 Abdomen/GI: Positive for nausea, vomiting. 23:12 : Positive for flank pain, hematuria. Exam: 23:12 Constitutional: This is a well developed, well nourished patient who is awake, alert, rt and in no acute distress. Head/Face: Normocephalic, atraumatic. Eyes: Pupils equal round and reactive to light, extra-ocular motions intact. Lids and lashes normal. Conjunctiva and sclera are non-icteric and not injected. Cornea within normal limits. Periorbital areas with no swelling, redness, or edema. Neck: Trachea midline, no thyromegaly or masses palpated, and no cervical lymphadenopathy. Supple, full range of motion without nuchal rigidity, or vertebral point tenderness. No Meningismus. Chest/axilla: Normal chest wall appearance and motion. Nontender with no deformity. No lesions are appreciated. Cardiovascular: Regular rate and rhythm with a normal S1 and S2. No gallops, murmurs, or rubs. Normal PMI, no JVD. No pulse deficits. Respiratory: Lungs have equal breath sounds bilaterally, clear to auscultation and percussion. No rales, rhonchi or wheezes noted. No increased work of breathing, no retractions or nasal flaring. Abdomen/GI: Soft, non-tender, with normal bowel sounds. No distension or tympany. No guarding or rebound. No evidence of tenderness throughout. Skin: Warm, dry with normal turgor. Normal color with no rashes, no lesions, and no evidence of cellulitis. MS/ Extremity: Pulses equal, no cyanosis. Neurovascular intact. Full, normal range of motion. Neuro: Awake and alert, GCS 15, oriented to person, place, time, and situation. Cranial nerves II-XII grossly intact. Motor strength 5/5 in all extremities. Sensory grossly intact. Cerebellar exam normal. Normal gait. Psych: Awake, alert, with orientation to person, place and time. Behavior, mood, and affect are within normal limits. 23:12 ECG was reviewed by the Attending Physician. rt Vital Signs: 18:55 BP 121 / 72; Pulse 71; Resp 17; Temp 97.8; Pulse Ox 100% ; Weight 86.18 kg; Height 5 ll1 ft. 7 in. (170.18 cm); Pain 9/10; 20:48 BP 118 / 78; Pulse 67; Resp 14; Pulse Ox 98% ; Pain 9/10; ll3 21:57 BP 125 / 68; Pulse 56; Resp 20; Pulse Ox 98% on R/A; Pain 6/10; ll3 18:55 Body Mass Index 29.76 (86.18 kg, 170.18 cm) ll1 MDM: 20:12 Patient medically screened. rt 23:12 Differential diagnosis: Abdominal aneurysm, dissection, pyelonephritis, rt nephrolithiasis. Data reviewed: vital signs, nurses notes, lab test result(s), EKG, radiologic studies. Independent interpretation of the following test(s) in the Emergency Department CT Scan: My interpretation is Evaluated mass on CT. Test considered but Not performed: MRI: No signs of cauda equina syndrome, spinal epidural abscess, MRI not indicated. Response to treatment: the patient's symptoms have resolved after treatment. ED course: Patient presents to the ED with right flank pain. There is hematuria without evidence of infection. No kidney stone noted. Patient was informed of incidental findings of hepatic lesion, will get outpatient follow-up for this. Was instructed to follow-up for hematuria. Her aneurysm is 4.2 cm, smaller than previous study, do not believe this is the etiology of her pain. Pain is improved with treatment in the ED, stable for outpatient care, return precautions discussed.. 04/20 20:03 Order name: CBC with Diff; Complete Time: 20:57 rt 04/20 20:03 Order name: CMP; Complete Time: 20:57 rt 04/20 20:03 Order name: Troponin High Sensitivity; Complete Time: 20:57 rt 04/20 20:03 Order name: CT Aorta for Dissection; Complete Time: 21:59 rt 04/20 21:41 Order name: Urine Dipstick-Ancillary; Complete Time: 21:48 EDMS 04/20 20:03 Order name: Urine Dipstick-Ancillary (obtain specimen); Complete Time: 21:40 rt 04/20 20:03 Order name: EKG; Complete Time: 20:03 rt 04/20 20:03 Order name: EKG - Nurse/Tech; Complete Time: 20:28 rt EC:12 Rate is 51 beats/min. Rhythm is regular, Sinus bradycardia with No ectopy. QRS D Lo is rt Normal. AL interval is normal. QRS interval is normal. QT interval is normal. No Q waves. T waves are Normal. No ST changes noted. Interpreted by me. Administered Medications: 20:28 Drug: NS 0.9% 1000 ml Route: IV; Rate: 1 bolus; Site: right antecubital; ll3 22:29 Follow up: Response: No adverse reaction; IV Status: Completed infusion; IV Intake: ll3 1000ml 21:04 Drug: morphine 4 mg Route: IVP; Infused Over: 4 mins; Site: right antecubital; ll3 21:57 Follow up: Response: No adverse reaction; Pain is decreased ll3 21:04 Drug: Zofran (Ondansetron) 4 mg Route: IVP; Site: right antecubital; ll3 21:57 Follow up: Response: No adverse reaction; Marked relief of symptoms ll3 Disposition Summary: 04/20/22 22:14 Discharge Ordered Location: Home rt Problem: new rt Symptoms: have improved rt Condition: Stable rt Diagnosis - Right Flank Pain rt - Other microscopic hematuria rt Followup: rt - With: Private Physician - When: 2 - 3 days - Reason: Followup: rt - With: Kana Rolon MD - When: 5 - 6 days - Reason: Further diagnostic work-up Discharge Instructions: - Discharge Summary Sheet rt - Flank Pain, Adult rt - Hematuria, Adult rt Forms: - Medication Reconciliation Form rt - Thank You Letter rt - Antibiotic Education rt - Prescription Opioid Use rt Prescriptions: - Tylenol-Codeine #3 300 mg-30 mg Oral - take 1 tablet by ORAL route every 6 hours; 18 tablet; Refills: 0, Product rt Selection Permitted Signatures: Dispatcher [employer] EDMS Daniel Jung RN RN ll1 Ellen Chambers RN RN ll3 Andrade Owens MD MD rt Corrections: (The following items were deleted from the chart) 23:16 23:12 Rate is 87 beats/min. Rhythm is regular, Normal Sinus Rhythm with No ectopy. QRS rt D Lo is Normal. AL interval is normal. QRS interval is normal. QT interval is normal. No Q waves. T waves are Normal. No ST changes noted. Interpreted by me. rt
[2022-04-20 22:53] VITALS: TEMP 97.8
[2022-04-20 22:54] VITALS: O2SAT 98
[2022-04-20 22:55] VITALS: BP 125/68
== END 2022-04-20 22:30 | disposition home or self-care (01) ==
LOC: ER 18:38
DX: R31.29 Other microscopic hematuria (principal); Z88.1 Allergy status to other antibiotic agents
CPT/HCPCS: 85025; 36415; 81003; 84484; 80053; 71275; 74175; Q9967; J7030; J2405; 93005